=== PATIENT | male | born 1990 | race Two or more races ===

== ENCOUNTER 2021-03-23 21:35 | Emergency (ER) | payer SELFPAY ==
[~2021-03-23] VITALS: Ht 185.4 cm; Wt 104.3 kg
[2021-03-23] MEDS ORDERED: MORPHINE SULFATE 4 MG/ML SYR/VIAL IV ONE (22:00)
[2021-03-23] MEDS ORDERED: ONDANSETRON HCL 4 MG/2 ML VIAL IV ONE (22:00)
[2021-03-23] MEDS ORDERED: SODIUM CHLORIDE 0.9% 1,000 ML IVB ONE (22:00)
[2021-03-23 22:25] LABS: Eosinophils # (auto) 0 10 ^3/uL (0-0.8); Mean Corpuscular Volume 88.3 fL (80.0-100.0); Neutrophils # (auto) 11.7 10 ^3/uL (1.6-8.6)
[2021-03-23 22:26] LABS: Basophils # (auto) 0.1 10 ^3/uL (0-0.2); Basophils % (auto) 0.6 % (0.0-2.0); Eosinophils % (auto) 0.1 % (0.0-7.0); Hematocrit 53.3 % (41.0-53.0); Hemoglobin 18.1 g/dL (13.5-17.5); Lymphocytes # (auto) 0.8 10 ^3/uL (0.4-5.4); Lymphocytes % (auto) 6.2 % (10.0-50.0); Mean Corpuscular Hgb Conc. 33.9 g/dL (32.0-36.0); Monocytes # (auto) 0.5 10 ^3/uL (0-1.3); Monocytes % (auto) 3.5 % (0.0-12.0); Neutrophils % (auto) 89.6 % (37.0-80.0); Nucleated Red Blood Cells % 0.3 %; Red Blood Cells 6.03 10^6/uL (4.5-5.90); Red Cell Distribution Width 13.3 % (11.8-14.3); White Blood Cell 13.1 10^3/uL (4.4-10.8)
[2021-03-23 22:46] LABS: Albumin 4.3 g/dL (3.4-5.0); Calcium 9.2 mg/dL (8.5-10.1)
[2021-03-23 22:50] LABS: BUN/Creatinine Ratio 14.5; Bilirubin, Total 1.1 mg/dL (0.2-1.0); Total Protein 8.4 g/dL (6.4-8.2)
[2021-03-23 23:44] LABS: INR 1.05 (0.9-1.15); Partial Thromboplastin Time 30.3 sec (23.6-33.0)
[2021-03-24 01:30] VITALS: BP 105/55
[2021-03-24 01:41] LABS: Urine Bacteria FEW /hpf (None Seen); Urine Blood TRACE /uL (Negative); Urine Mucus FEW (None Seen); Urine Specific Gravity 1.033 (1.001-1.035); Urine WBC 6 /hpf (0 - 3)
== END 2021-03-24 04:08 | disposition home or self-care (01) ==
LOC: ER 21:35
DX: R10.9 Unspecified abdominal pain (principal); R11.2 Nausea with vomiting, unspecified; R19.7 Diarrhea, unspecified
CPT/HCPCS: 36415; 74176; 80053; 81001; 83690; 85025; 85610; 85730; 96361; 96374; 96375; 99284; J2270; J2405; J7030

== ENCOUNTER 2022-05-23 16:17 | Emergency (ER) | payer OTHER ==
[~2022-05-23] VITALS: Ht 193 cm; Wt 105.0 kg
[2022-05-23 18:10] LABS: Basophils # (auto) 0 10 ^3/uL (0-0.2); Basophils % (auto) 0.6 % (0.0-2.0); Eosinophils # (auto) 0.3 10 ^3/uL (0-0.8); Eosinophils % (auto) 3.7 % (0.0-7.0); Hemoglobin 15.4 g/dL (13.5-17.5); Lymphocytes # (auto) 2.5 10 ^3/uL (0.4-5.4); Lymphocytes % (auto) 35.1 % (10.0-50.0); Mean Corpuscular Hemoglobin 29.5 pg (28.0-32.0); Mean Corpuscular Hgb Conc. 33.4 g/dL (32.0-36.0); Mean Corpuscular Volume 88.3 fL (80.0-100.0); Monocytes # (auto) 0.6 10 ^3/uL (0-1.3); Neutrophils # (auto) 3.7 10 ^3/uL (1.6-8.6); Neutrophils % (auto) 51.6 % (37.0-80.0); Nucleated Red Blood Cells % 0.3 %; Red Blood Cells 5.21 10^6/uL (4.5-5.90); Red Cell Distribution Width 13.1 % (11.8-14.3); White Blood Cell 7.1 10^3/uL (4.4-10.8)
[2022-05-23 18:16] LABS: Calcium 8.9 mg/dL (8.5-10.1)
[2022-05-23 18:30] VITALS: BP 126/68
== END 2022-05-23 19:01 | disposition home or self-care (01) ==
LOC: ER 16:17
DX: R07.89 Other chest pain (principal); M62.89 Other specified disorders of muscle
CPT/HCPCS: 36415; 80048; 84484; 85025; 93005; 93971